=== PATIENT | male | born 1985 | race Two or more races ===

== ENCOUNTER 2018-08-19 08:06 | Inpatient (IN) | payer OTHER ==
[2018-08-19] MEDS: ACETAMINOPHEN 500 MG TAB PO (09:23)
[2018-08-19] MEDS ORDERED: MIDAZOLAM 1 MG/ML 2 ML INJ (10:16)
[2018-08-19] MEDS ORDERED: LIDOCAINE 2% (SDV) 5 ML INJ (10:16)
[2018-08-19] MEDS ORDERED: METOCLOPRAMIDE 10 MG INJ (10:16)
[2018-08-19] MEDS ORDERED: PROPOFOL 40 ML (10:16)
[2018-08-19] MEDS ORDERED: CEFAZOLIN 1 GM INJ (10:16)
[2018-08-19] MEDS ORDERED: FENTAnyl 50 MCG/ML VIAL ×3 (10:16→12:54)
[2018-08-19] MEDS ORDERED: ONDANSETRON 4 MG INJ (10:16)
[2018-08-19] MEDS ORDERED: FAMOTIDINE 20 MG INJ (10:17)
[2018-08-19] MEDS ORDERED: OXYCODONE/ACETAMINOPHEN (5/325) TAB PO ×2 (10:30)
[2018-08-19] MEDS ORDERED: LABETALOL HCL 20MG INJ IV (10:30)
[2018-08-19] MEDS ORDERED: DIPHENHYDRAMINE 50 MG INJ IV (10:30)
[2018-08-19] MEDS ORDERED: morphine (1 MG/ML) 10ML SYRINGE IV ×2 (10:30)
[2018-08-19] MEDS ORDERED: ONDANSETRON 4 MG INJ IV (10:30)
[2018-08-19] MEDS ORDERED: FENTAnyl 50 MCG/ML VIAL IV (10:30)
[2018-08-19] MEDS ORDERED: ALBUTEROL 0.083% (NEB) 2.5 MG/3 ML AMP HHN (10:30)
[2018-08-19] MEDS ORDERED: HYDROmorphONE 1 MG/5 ML IV SYRINGE IV (10:30)
[2018-08-19] MEDS ORDERED: PHENYLephrine (100 MCG/ML) 5ML SYG ×2 (11:35→12:12)
[2018-08-19] MEDS ORDERED: ESMOLOL 10 ML (11:53)
[2018-08-19] MEDS ORDERED: morphine 2 MG INJ IV (13:00)
[2018-08-19] MEDS: HYDROmorphONE 1 MG/5 ML IV SYRINGE IV ×2 (13:36→13:57)
[2018-08-19] MEDS: FENTAnyl 50 MCG/ML VIAL IV ×2 (13:37→13:58)
[2018-08-19] MEDS: MEPERIDINE 25 MG INJ IV (13:38)
[2018-08-19] MEDS: D5W-0.45 NACL + KCL 20 MEQ 1,000 ML IV ×2 (14:41→20:43)
[2018-08-19] MEDS: morphine 4 MG/ML VIAL IV ×3 (16:30→20:38)
[2018-08-19] MEDS ORDERED: ACETAMINOPHEN 325 MG TAB PO (22:00)
[2018-08-20] MEDS: HYDROCODONE/APAP (5/325) TAB PO ×3 (00:26→10:11)
[2018-08-20] MEDS: morphine 4 MG/ML VIAL IV (01:59)
[2018-08-20] MEDS: DIPHENHYDRAMINE 25 MG CAP PO (04:36)
[2018-08-20] MEDS: D5W-0.45 NACL + KCL 20 MEQ 1,000 ML IV ×2 (04:43→12:42)
[2018-08-20 05:24] LABS: ADD MAN DIFF? NO
[2018-08-20 05:25] LABS: WHITE BLOOD COUNT 7.6 10^3/ul (4.8-10.8)
[2018-08-20 05:25] LABS: BASOPHIL # 0.1 10^3/ul (0.0-0.1); BASOPHILS % 1.3 % (0.0-2.0); EOSINOPHILS # 0.2 10^3/ul (0.0-0.5); EOSINOPHILS % 2.7 % (0.0-7.0); HEMATOCRIT 43.9 % (42.0-52.0); HEMOGLOBIN 14.7 g/dl (14.0-18.0); LYMPHOCYTES # 2.7 10^3/ul (0.8-2.9); LYMPHOCYTES % 35.7 % (15.0-51.0); MEAN CORPUSCULAR HEMOGLOBIN 30.1 pg (29.0-33.0); MEAN CORPUSCULAR HGB CONC 33.5 g/dl (32.0-37.0); MEAN PLATELET VOLUME 8.6 fl (7.4-10.4); MONOCYTE # 0.6 10^3/ul (0.3-0.9); MONOCYTES % 7.3 % (0.0-11.0); NEUTROPHILS % 52.3 % (39.0-77.0); PLATELET COUNT 262 10^3/UL (140-415); RED BLOOD COUNT 4.88 10^6/ul (4.70-6.10); RED CELL DISTRIBUTION WIDTH 12.5 % (11.5-14.5)
[2018-08-20 06:28] LABS: ANION GAP 10 (5-13); BLOOD UREA NITROGEN 13 mg/dl (7-20); CALCIUM 9.7 mg/dl (8.4-10.2); CARBON DIOXIDE 29 mmol/L (21-31); CHLORIDE 103 mmol/L (97-110); CREATININE 1.07 mg/dl (0.61-1.24); Estimated GFR > 60 mL/min (>60); GLUCOSE 98 mg/dl (70-220); POTASSIUM 4.4 mmol/L (3.5-5.1); SODIUM 142 mmol/L (135-144)
[2018-08-20] MEDS: LISINOPRIL 10 MG TAB PO (09:28)
[2018-08-20] MEDS ORDERED: ATORVASTATIN 10 MG TAB PO (21:00)
== END 2018-08-20 15:05 | disposition home or self-care (01) | DRG 585 ==
LOC: REC 08:06 → MS1 14:14
PROC: 0HTV0ZZ Resection of Bilateral Breast, Open Approach (ICD-10-PCS; principal; 2018-08-19 10:30)
DX: N62 Hypertrophy of breast (principal); I10 Essential (primary) hypertension; E78.5 Hyperlipidemia, unspecified
CPT/HCPCS: 80048; 85025; 88307

== ENCOUNTER 2018-09-24 17:01 | Emergency (ER) | payer OTHER ==
[2018-09-24] MEDS: ACETAMINOPHEN 325 MG TAB PO (18:31)
[2018-09-24] MEDS: DIPHTH/TET/ACEL PERTUSS (ADULT) 0.5 ML VIAL IM* (18:32)
== END 2018-09-24 20:36 | disposition home or self-care (01) ==
LOC: FTE 17:01
DX: S09.90XA Unspecified injury of head, initial encounter (principal); R51 Headache; W22.8XXA Striking against or struck by other objects, initial encounter; Y92.9 Unspecified place or not applicable; Z23 Encounter for immunization
CPT/HCPCS: 70450; 90471; 90715; 99284-25